=== PATIENT | male | born 1965 | race Caucasian/White ===

== ENCOUNTER 2016-12-20 20:57 | Emergency (ER) | payer OTHER ==
[2016-12-20] MEDS ORDERED: SODIUM CHLORIDE 0.9% 1,000 ML IV ONE (22:04)
== END 2016-12-20 23:27 | disposition home or self-care (01) ==
DX: E86.0 Dehydration (principal); R19.7 Diarrhea, unspecified; D72.829 Elevated white blood cell count, unspecified; Z96.652 Presence of left artificial knee joint; I10 Essential (primary) hypertension; Z79.82 Long term (current) use of aspirin

== ENCOUNTER 2016-12-21 08:00 | Outpatient (CLI) | payer OTHER | END 2016-12-21 08:01 | disposition home or self-care (01) | DX: R19.7 Diarrhea, unspecified (principal) ==

== ENCOUNTER 2017-01-01 15:42 | Emergency (ER) | payer OTHER ==
[2017-01-01] MEDS ORDERED: SODIUM CHLORIDE 0.9% 2,000 ML IV ONE (16:04)
[2017-01-01 16:26] LABS: BASOPHILS % (AUTO) 0.5 %; EOSINOPHILS % (AUTO) 0.4 %; HCT - HEMATOCRIT 39.7 % (42.0-52.0); HGB - HEMOGLOBIN 13.3 g/dL (14.0-18.0); LYMPHOCYTES # (AUTO) 1.4 10^3/uL (1.5-3.5); LYMPHOCYTES % (AUTO) 14.8 %; MEAN CORPUSCULAR HEMOGLOBIN 30.7 pg (27.0-31.0); MEAN CORPUSCULAR HGB CONC 33.4 g/dL (32.0-36.0); MEAN CORPUSCULAR VOLUME 91.9 fL (80.0-94.0); MEAN PLATELET VOLUME 7.9 fL (7.4-11.4); MONOCYTES # (AUTO) 0.8 10^3/uL (0.0-1.0); MONOCYTES % (AUTO) 8.8 %; NEUTROPHILS % (AUTO) 75.5 %; RED BLOOD COUNT 4.32 10^6/uL (4.70-6.10); RED CELL DISTRIBUTION WIDTH 13.1 % (12.0-15.0); UNCORRECTED WHITE BLOOD COUNT 9.2 x10^3/uL; WHITE BLOOD COUNT 9.2 x10^3/uL (4.8-10.8)
[2017-01-01 16:37] LABS: ALBUMIN/GLOBULIN RATIO 1.5 (1.0-2.2); BILIRUBIN,TOTAL 0.6 mg/dL (0.2-1.0); CALCIUM 9.4 mg/dL (8.5-10.3); POTASSIUM 3.6 mmol/L (3.5-5.0); TOTAL PROTEIN 7.7 g/dL (6.7-8.2)
--- NOTE | 2017-01-01 18:08 | ED Physician Documentation ---
History of Present Illness - Stated complaint Stated Complaint: LOW BP - Chief complaint Chief Complaint: General - History obtained from History obtained from: Patient - History of Present Illness Timing: Today - Additonal information Additional information: The patient is a 51-year-old male who presents with lightheadedness, with blood pressure of 90/60 in physical therapy just prior to arrival. He is 3 weeks status post left total knee replacement. He has had loose diarrhea stools for the past 3 weeks since being discharged from the hospital after surgery. He was given 1 laxative suppository while in the hospital, but has not been using any stool softeners or laxatives since that time. He was seen here in the emergency department 2 weeks ago for diarrhea. C. difficile test was negative. He has been treated with Imodium, without relief. He was started on Flagyl 3 days ago by his primary physician for presumptive C. difficile. Culture results came back negative and so the antibiotic was discontinued today. He uses Tylenol for his postoperative knee pain, with occasional oxycodone. He has not taken oxycodone for the past 2 days. He denies fever, abdominal pain, nausea or vomiting. He denies history of similar symptoms in the past. Review of Systems Constitutional: denies: Fever Ears: denies: Tinnitus/ringing Nose: denies: Congestion Throat: denies: Sore throat Cardiac: denies: Chest pain / pressure, Palpitations Respiratory: denies: Dyspnea, Cough GI: reports: Diarrhea. denies: Abdominal Pain, Nausea, Vomiting : denies: Dysuria Skin: denies: Rash Musculoskeletal: denies: Back pain Neurologic: denies: Focal weakness, Numbness, Headache PD PAST MEDICAL HISTORY - Past Medical History Cardiovascular: Hypertension, High cholesterol Neuro: None Endocrine/Autoimmune: None Psych: None Musculoskeletal: Osteoarthritis - Past Surgical History Past Surgical History: Yes General: Cholecystectomy Ortho: Hip replacement, Rotator cuff repair, Arthroscopic surgery - Present Medications Home Medications: Ambulatory Orders Medication Instructions Recorded Confirmed Candesartan/Hydrochlorothiazid 32 mg PO DAILY 01/13/16 01/01/17 [Candesartan-Hctz 16-12.5 mg Tb] Simvastatin 1 tab PO DAILY 01/13/16 01/01/17 Acetaminophen 1,000 mg PO Q8HR 12/20/16 01/01/17 Aspirin 81 mg PO BID 12/20/16 01/01/17 oxyCODONE [Roxicodone] 5 mg PO Q3HR 12/20/16 01/01/17 Loperamide [Imodium] 1 tab PO .FREQ 01/01/17 01/01/17 - Allergies Allergies/Adverse Reactions: Allergies Allergy/AdvReac Type Severity Reaction Status Date / Time No Known Drug Allergies Allergy Verified 12/20/16 21:05 - Social History Does the pt smoke?: No Smoking Status: Never smoker Does the pt drink ETOH?: Yes Does the pt have substance abuse?: No - Immunizations Immunizations are current?: Yes - POLST Patient has POLST: No PD ED PE NORMAL - Vitals Vital signs reviewed: Yes (Normal, with blood pressure of 134/85.) - General General: Alert and oriented X 3, Well developed/nourished, Other (Appears somewhat fatigued.) - HEENT HEENT: Atraumatic, EOMI, Pharynx benign - Neck Neck: Supple, no meningeal sign, No adenopathy, No JVD - Cardiac Cardiac: RRR, No murmur - Respiratory Respiratory: No respiratory distress, Clear bilaterally - Abdomen Abdomen: Soft, Non tender - Back Back: No CVA TTP, No spinal TTP - Derm Derm: No rash - Extremities Extremities: No calf tenderness / cord, Other (Healing surgical wound left knee. ) - Neuro Neuro: Alert and oriented X 3, No motor deficit, Normal speech Results - Vitals Vitals: Oxygen O2 Source Room air - Labs Labs: Laboratory Tests 01/01/17 01/01/17 16:16 16:16 WBC 9.2 RBC 4.32 L Hgb 13.3 L Hct 39.7 L MCV 91.9 MCH 30.7 MCHC 33.4 RDW 13.1 Plt Count 467 H MPV 7.9 Neut # 7.0 H Lymph # 1.4 L [place] # 0.8 Eos # 0.0 Baso # 0.0 Absolute Nucleated RBC 0.00 Nucleated RBCs 0.0 Sodium 137 Potassium 3.6 Chloride 100 L Carbon Dioxide 28 Anion Gap 9.0 BUN 15 Creatinine 1.0 Estimated GFR (MDRD) 78 L Glucose 97 Calcium 9.4 Total Bilirubin 0.6 AST 20 ALT 23 Alkaline Phosphatase 71 Total Protein 7.7 Albumin 4.6 Globulin 3.1 Albumin/Globulin Ratio 1.5 Lipase 33 PD MEDICAL DECISION MAKING - ED course Complexity details: reviewed old records, reviewed results, re-evaluated patient , considered differential, d/w patient ED course: The patient's presentation is significant for orthostatic hypotension caused by dehydration. The reason for his dehydration is diarrhea. The cause of his diarrhea is uncertain. He has had 3 tests for Clostridium difficile, all of which have come back negative. He has no other clinical evidence to suggest infectious etiology of his diarrhea. He has no other abdominal symptoms, and has a benign abdominal exam. Treatment in the emergency department included administration of normal saline 2 L IV. Following this treatment and felt subjectively much improved, and demonstrates ability to ambulate without lightheadedness. I discussed with him and his family the importance of adequate fluid intake, outpatient follow-up, as well as potentially worrisome signs or symptoms that should prompt reevaluation in the emergency department. If his diarrhea persists, he may benefit from colonoscopy for further evaluation. Departure - Departure Disposition: 01 Home, Self Care Clinical Impression: Orthostatic hypotension, Dehydration Diarrhea Qualifiers: Diarrhea type: unspecified type Qualified Code(s): R19.7 - Diarrhea, unspecified Condition: Stable Instructions: ED Dehydration, ED Hypotension Orthostatic Follow-Up: DAISHA SHORT [Primary Care Provider] - Comments: Drink plenty of fluids. Eat probiotic yogurt and chicken noodle soup. Follow up with your primary physician within one week. Call to schedule an appointment. Return to the emergency department if you develop recurrent dehydration, lightheadedness, increasing abdominal pain, or otherwise worsening symptoms. Discharge Date/Time: 01/01/17 18:30
[2017-01-01 18:28] VITALS: BP 144/91
== END 2017-01-01 18:30 | disposition home or self-care (01) ==
LOC: ED 15:42
DX: E86.0 Dehydration (principal); I95.1 Orthostatic hypotension; R19.7 Diarrhea, unspecified; I10 Essential (primary) hypertension; Z96.652 Presence of left artificial knee joint; Z96.649 Presence of unspecified artificial hip joint; Z79.82 Long term (current) use of aspirin
CPT/HCPCS: 36415; 80053; 83690; 85025; 96360; 96361; 99284

== ENCOUNTER 2018-07-14 04:48 | Emergency (ER) | payer OTHER ==
[2018-07-14 04:56] VITALS: BP 154/94
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
--- NOTE | 2018-07-14 05:45 | XRAY Report ---
Reason: distal medial femur pain Procedure Date: 07/14/2018 Accession Number: [id number] / [id number] Procedure: XR - Knee 4 View RT CPT Code: FULL RESULT: EXAM: RIGHT KNEE RADIOGRAPHY EXAM DATE: 07/14/2018 05:38 AM. CLINICAL HISTORY: Distal medial femur pain. COMPARISON: None. TECHNIQUE: 3 views. FINDINGS: Bones: Old healed fracture in the distal shaft of the femur. No acute fracture seen. Joints: No dislocation. Moderate 3 compartment degenerative joint disease. No definite joint effusion. Soft Tissues: Grossly unremarkable. IMPRESSION: 1. Old healed femur fracture. 2. Degenerative joint disease. RADIA
== END 2018-07-14 06:05 | disposition home or self-care (01) ==
LOC: ED 04:48
DX: M79.651 Pain in right thigh (principal); I10 Essential (primary) hypertension; E78.00 Pure hypercholesterolemia, unspecified; Z87.81 Personal history of (healed) traumatic fracture; Z96.649 Presence of unspecified artificial hip joint
CPT/HCPCS: 99282; 99283

== ENCOUNTER 2019-07-03 08:36 | Emergency (ER) | payer OTHER ==
[2019-07-03 08:49] VITALS: BP 146/76
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
== END 2019-07-03 09:44 | disposition home or self-care (01) ==
LOC: ED 08:36
DX: I80.02 Phlebitis and thrombophlebitis of superficial vessels of left lower extremity (principal); I83.892 Varicose veins of left lower extremity with other complications; Z86.718 Personal history of other venous thrombosis and embolism; I10 Essential (primary) hypertension; Z96.642 Presence of left artificial hip joint
CPT/HCPCS: 99281; 99283

== ENCOUNTER 2023-08-24 11:03 | Emergency (ER) | payer OTHER ==
--- NOTE | 2023-08-24 11:31 | ED Physician Documentation ---
PD HPI HEAD INJURY - Stated complaint Stated Complaint: HEAD INJ - Chief complaint Chief Complaint: Trauma Hd/Nk - History obtained from History obtained from: Patient - History of Present Illness Mechanism of head injury: Blow Where head injury occurred: Home Location of injury: Top Quality of pain: Pain Associated symptoms: No: LOC, AMS, Amnesia, Nausea / vomiting, Neck pain, Paresthesias, Seizures, Ear drainage, Nasal drainage Contributing factors: No: Anticoagulated, Intoxicated - Additional information Additional information: 57-year-old male presents with an injury to the top of his head. The patient was using a fence post pounder and pounding in a fence post when it swung back and hit him on the top of the head. He was dazed but had no loss of consciousness. He states he felt a large "crack" and is concerned for possible injury. Has a headache, no alteration mental status, no nausea or vomiting, no ataxia or dizziness. He did briskly for a short time but bleeding has since been controlled. He is up-to-date on his tetanus. Review of Systems Constitutional: reports: Reviewed and negative Neurologic: reports: Headache, Head injury. denies: Generalized weakness, Focal weakness, Numbness, Difficulty speaking, Syncope, Seizure, Confused, Altered mental status, LOC PD PAST MEDICAL HISTORY - Past Medical History Past Medical History: Yes Cardiovascular: Hypertension, High cholesterol Respiratory: Sleep apnea Neuro: None Endocrine/Autoimmune: None GI: None : Kidney stones Psych: None Musculoskeletal: Osteoarthritis Derm: None - Past Surgical History Past Surgical History: Yes General: Cholecystectomy Ortho: Hip replacement, Knee replacement, Rotator cuff repair, Arthroscopic surgery - Present Medications Home Medications: Ambulatory Orders Medication Instructions Recorded Confirmed Simvastatin 10 mg ORAL DAILY 01/13/16 08/24/23 Aspirin EC [Ecotrin] 81 mg PO DAILY 08/24/23 08/24/23 Losartan [Cozaar] 50 mg PO DAILY 08/24/23 08/24/23 Meloxicam 15 mg PO DAILY 08/24/23 08/24/23 amLODIPine [Norvasc] 5 mg PO DAILY 08/24/23 08/24/23 - Allergies Allergies/Adverse Reactions: Allergies Allergy/AdvReac Type Severity Reaction Status Date / Time No Known Drug Allergies Allergy Verified 08/24/23 11:18 - Social History Does the pt smoke?: No Smoking Status: Never smoker Does the pt drink ETOH?: Yes Does the pt have substance abuse?: No - Immunizations Immunizations are current?: Yes - POLST Patient has POLST: No PD ED PE NORMAL - Vitals Vital signs reviewed: Yes - General General: Alert and oriented X 3, No acute distress, Well developed/nourished - HEENT HEENT: PERRL, EOMI, Moist mucous membranes, Pharynx benign, Other (Contusion, hematoma ~4x2cm, and a skin tear w/ irregular shape laceration with tenderness on the crown of the scalp. No palpable skull depression, small hematoma.) - Neck Neck: No bony TTP, C-Spine cleared by NEXUS criteria - Cardiac Cardiac: RRR, No murmur - Respiratory Respiratory: No respiratory distress, Clear bilaterally - Abdomen Abdomen: Normal bowel sounds, Soft, Non tender, Non distended - Derm Derm: Normal color, Warm and dry, Other (mixed skin tear/lac on crown of scalp, 1x1x1 cm starburst lac into linear shallow 3cm laceration/skin tear w/ approx 1/2cm v shaped lac anteriorly) - Neuro Neuro: Alert and oriented X 3 Eye Opening: Spontaneous Motor: Obeys Commands Results - Vitals Vitals: Vital Signs - 24 hr 08/24/23 08/24/23 11:18 13:11 Temperature 36.1 C L 36.5 C Heart Rate 74 72 Respiratory 16 16 Rate Blood Pressure 150/90 H 140/88 H O2 Saturation 95 96 Oxygen O2 Source Room air - Rads (name of study) No standard instances Relevant Findings:: Final report received Procedures - Laceration (location) Scalp Length in cm: 4 Wound type: Irregular Wound preparation: Hibiclens, Irrigated copiously NS Skin layer closure: Nellis (4) Other: Patient tolerated well, Dressing applied, Tetanus UTD PD Medical Decision Making - ED course Complexity details: reviewed results, d/w patient ED course: 57-year-old male presented after head injury as described in HPI. On exam, the patient has no acute neurofindings, and his scalp wound is somewhat irregular, a small starburst type laceration that moves into a shallow laceration and hematoma going anteriorly and then the very anterior most section of the laceration is again slightly deeper. There is approximately 4 x 2 cm palpable hematoma next to including the laceration. I discussed with patient that I recommended that we do close the deeper areas of this and the patient was agreeable. After cleaning thoroughly with Hibiclens and sterile saline, I placed a total of 4 karson throughout the wound to close the deeper areas of the laceration. A pressure dressing was applied and patient was advised on home wound care instructions. I recommended cool compress to the hematoma, and light pressure dressing until improved. The karson can be removed in 10 to 14 days and patient states he has an appointment with his PCP on the at which time he can have them removed. We did obtain a CT scan though the patient did not meet trauma criteria, the patient was concerned for a possible skull fractu re given the force of the injury and therefore I did obtain a CT which shows a hematoma but no other acute findings. The patient is stable for discharge home at this time. He states he is up-to-date on his tetanus. And I discussed return precautions. Departure - Departure Disposition: 01 Home, Self Care Clinical Impression: Traumatic injury of head with hematoma of scalp Scalp laceration Qualifiers: Encounter type: initial encounter Qualified Code(s): S01.01XA - Laceration without foreign body of scalp, initial encounter Condition: Good Instructions: ED Head Injury Closed, ED Laceration Scalp Stitch Or Stap Comments: Liban, your CT scan does not show any bleeding inside the brain or any fractures of the skull. You do have a hematoma which is a collection of blood between the skin and the skull. This will dissipate on its own over the next several days to week. We did place several karson and these can be removed when you see your primary care doctor on the . Return at any point if new or worsening symptoms. Forms: PCP List Discharge Date/Time: 08/24/23 13:11
--- NOTE | 2023-08-24 12:41 | CT Report ---
PROCEDURE: Head WO INDICATIONS: hit in head w/ fence post pounder TECHNIQUE: Noncontrast 4.5 mm thick angled axial sections acquired from the foramen magnum to the vertex. For r adiation dose reduction, the following was used: automated exposure control, adjustment of mA and/or kV according to patient size. COMPARISON: None. FINDINGS: Image quality: There is streak artifact seen through the skull base. CSF spaces: Basal cisterns are patent. No extra-axial fluid collections. Ventricles are normal in size and shape. Brain: No midline shift. No intracranial masses or hemorrhage. Street-white matter interface is norm al. Skull and face: Scalp laceration with scalp hematoma can be seen superiorly, as on series 6 image 31 and on series 5 image 46. No associated displaced calvarial fracture is seen. Calvarium and visualiz ed facial bones are intact, without suspicious lesions. Sinuses: Visualized sinuses and mastoids are clear. IMPRESSION: Scalp hematoma with laceration seen superiorly, without an associated calvarial fracture identified. No intracranial hemorrhage is seen. No significant intracranial abnormality is seen. Reviewed by: Miki Lewis MD on 08/24/2023 11:40 AM [facility] Approved by: Miki Lewis MD on 08/24/2023 11:40 AM [facility] Station ID: [id number]
[2023-08-24 13:16] VITALS: BP 140/88; O2SAT 96
== END 2023-08-24 13:11 | disposition home or self-care (01) ==
LOC: ED 11:03
DX: S09.90XA Unspecified injury of head, initial encounter (principal); S01.01XA Laceration without foreign body of scalp, initial encounter; W22.8XXA Striking against or struck by other objects, initial encounter; Y93.H9 Activity, other involving exterior property and land maintenance, building and construction; I10 Essential (primary) hypertension; E78.00 Pure hypercholesterolemia, unspecified; Z79.899 Other long term (current) drug therapy; Z79.82 Long term (current) use of aspirin
CPT/HCPCS: 12002; 99283; 99284